=== PATIENT | female | born 1960 | race Caucasian/White ===

== ENCOUNTER → 2024-11-26 14:01 | Outpatient (REF) | payer BC, SELFPAY | LOC: HWRAD 14:01 | PROVIDERS: ATTENDING PHYSICIAN Internal Medicine Critical Care Medicine; FAMILY PHYSICIAN Family Medicine | DX: R91.1 Solitary pulmonary nodule (principal) | CPT/HCPCS: 71250 ==

== ENCOUNTER → 2025-01-28 11:18 | Outpatient (REF) | payer BC, SELFPAY ==
[2025-01-28 11:51] LABS: Glucose 105 mg/dl (70-99)
== END ==
LOC: PET 11:18
PROVIDERS: ATTENDING PHYSICIAN Internal Medicine Critical Care Medicine
DX: R91.1 Solitary pulmonary nodule (principal); Z01.812 Encounter for preprocedural laboratory examination
CPT/HCPCS: 36415; 82947